=== PATIENT | female | born 1950 | race Two or more races ===

== ENCOUNTER 2016-12-27 15:32 | Emergency (ER) | payer MEDICARE, MEDICAID ==
--- NOTE | 2016-12-27 16:38 | CT ---
HEAD CT WITHOUT CONTRAST HISTORY: Ground-level fall with frontal scalp laceration. No intravenous contrast administered. Contiguous axial images acquired from skull base to vertex. COMPARISON:None. BRAIN VOLUME:Grossly unremarkable for patient age. VENTRICULAR SIZE: Mild ventriculomegaly without kali hydrocephalus. WHITE MATTER: Hypoattenuation of white matter compatible with microvascular disease of moderate extent. FOCAL MASS EFFECT:None. ACUTE INTRACRANIAL HEMORRHAGE:None. CALVARIUM:Grossly intact. Evidence of left frontal scalp laceration with soft tissue gas identified. VISIBLE PARANASAL SINUSES AND MASTOID AIR CELLS:Grossly clear. IMPRESSION: Evidence of frontal scalp laceration without depressed calvarial fracture, mass effect or acute intracranial hemorrhage. Findings of microvascular disease. Results were electronically transmitted to the electronic medical record at 12/27/2016 at 1634 hours.
== END 2016-12-27 18:25 | disposition home or self-care (01) ==
LOC: ED 15:32
DX: S01.01XA Laceration without foreign body of scalp, initial encounter (principal); S06.0X9A Concussion with loss of consciousness of unspecified duration, initial encounter; I10 Essential (primary) hypertension; E11.9 Type 2 diabetes mellitus without complications; Z79.4 Long term (current) use of insulin; W19.XXXA Unspecified fall, initial encounter; Y92.9 Unspecified place or not applicable